=== PATIENT | female | born 1995 | race African-American/Black ===

== ENCOUNTER 2021-09-22 08:07 | Inpatient (IN) ==
[2021-09-22] MEDS ORDERED: OXYTOCIN 30 UNITS/500 ML BAG IV PRN ×2 (08:43→08:54)
--- NOTE | 2021-09-22 08:57 | History & Physical Report ---
Date of Service September 22, 2021 Assessment & Plan (1) Encounter for induction of labor: Plan: 25yo at 39 weeks 4 days presents for IOL complicated by maternal obesity. - AROM later, start pit - Epidural likely, anesthesia consulted - Vitals: mildly tachycardic; otherwise WNL; cont. labor checks, heart monitoring (2) Unfavorable cervix in term : (3) 39 weeks gestation of : (4) Obesity in , antepartum: (5) Supervision of normal intrauterine in primigravida: Admission and Anticipated Discharge Date Admission Date: September 22, 2021 History of Present Illness Chief Complaint: IOL Primary Care Provider: [facility] 25yo at 39 weeks 4 days presents for IOL complicated by maternal obesity. Uncomplicated course thus far. Nulliparous. LMP: 12/19/20. Ledesma bulb inserted yesterday. Removed this morning. Contractions: yes; irregular, started 1 week ago, stronger as of yesterday Vaginal Bleeding: after ledesma insertion yesterday; large clot when ledesma came out this morning; otherwise no vaginal bleeding Leakage of fluid: minimal Movement: yes Did see MFM due to obesity (BMI >40) -higher risk for preeclampsia due to obesity, racial/ethnic background, nulliparity; recommended daily aspirin -increased risk of depression, consider SSRI Symptoms since LMP Symptoms since LMP: morning sickness, fatigue Infection History & Risk Profile Infection History: Hx Chlamydia: No, Hx Genital Herpes: No, Hx Gonorrhea: No, Hx Hepatitis: No, Hx HIV/AIDS: No, Hx Human Papilloma Virus (HPV): No, Hx Syphilis: No, Hx Tuberculosis: No, Rash or viral illness since LMP: No and Prior GBS infected child: No OB Labs: Blood Type O Positive 03/05/21 Antibody Screen NEGATIVE 03/05/21 Hemoglobin 11.9 g/dL (12.0-16.0) L 03/05/21 Hematocrit 36.3 % (37-47) L 03/05/21 Mean Corpuscular Volume 77.6 fL (80-100) L 03/05/21 Platelet Count 340 K/uL (130-400) 03/05/21 Rubella IgG Antibody Immune (Immune) 03/05/21 Rapid Plasma Reagin Nonreactive (Nonreactive) 03/05/21 Hepatitis B Surface Antigen Neg (Neg) 03/05/21 HIV (1&2) Ab and P24 Ag, 4th Gener Neg (Neg) 03/05/21 Glucose 1 Hour 50 gm Load 142 mg/dl (70-130) H 04/09/21 OB Optional Labs: Chlamydia trachomatis RNA NOT DETECTED (NOT DETECTED) 03/05/21 Neisseria gonorrhoeae RNA NOT DETECTED (NOT DETECTED) 03/05/21 Labs Reviewed: -low risk cfdna -neg cf/sma -gbs neg Current medications: , vit D, aspirin 81mg (due to higher risk for preeclampsia) Allergies Allergy/AdvReac Type Severity Reaction Status Date / Time amoxicillin Allergy Severe Anaphylaxis Verified 09/22/21 08:25 Penicillins Allergy Severe Anaphylaxis Verified 09/22/21 08:25 Home Medications Medication Instructions Recorded Confirmed Type prenat.vits,chuy,ybg-tokn-vynqo 1 tab PO DAILY 03/04/21 09/22/21 History cholecalciferol (vitamin D3) 125 125 mcg PO DAILY 08/31/21 09/22/21 History mcg (5,000 unit) tablet (Vitamin D3) aspirin 81 mg capsule 81 mg PO DAILY 09/22/21 09/22/21 History Patient History Medical History (Updated 09/22/21 @ 09:45 by Cory Cervantes DO) History of PCOS Surgical History (Updated 08/31/21 @ 12:53 by Little Magallon RN) H/O Achilles tendon repair LEFT H/O wisdom tooth extraction History of repair of ACL bilateral Family History (Updated 09/22/21 @ 09:43 by Cory Cervantes DO) Mother Hypertension Uncle Muscular dystrophy Social History (Updated 08/31/21 @ 12:56 by Little Magallon RN) Smoking Status: Never smoker Second Hand Exposure: No; Hx Alcohol Use: No Hx Substance Use: No Preferred Language: Mosotho Communication Ability: Effective Visual Impairment: Partially Limited Hearing Ability: Normal Hearings Reporter Required: No Beliefs That Will Affect Care: None marital status: Single marital status details: Jason (35) Current Living Situation: Alone Current Living Situation Comment: lives alone current occupational status: student current occupation: grad school Feels Safe at Home: Yes Gender Identity: Female Assistive Devices: Glasses Review of Systems Constitutional: denies fevers, chills, fatigue HEENT: denies congestion, sore throat CV: denies chest pain, palpitations Resp: denies shortness of breath, cough GI: denies abdominal pain other than contraction pain, nausea, vomiting, constipation, diarrhea : denies pain with urination, change in urinary frequency Musculoskeletal: denies recent injury Skin: denies new rash Neuro: denies new numbness, tingling, weakness Physical Exam Physical Exam: General: Alert, oriented, no acute distress Cardiac: Regular rate and rhythm. No murmurs appreciated. Respiratory: Clear to auscultation b/l with good air flow entry, symmetric chest rise and fall. No wheezes or crackles. No increased work of breathing or acce ssory muscle use. Abdomen: Gravid, soft, nontender. No guarding or CVA tenderness. Skin: No rashes or lesions. Extremities: Warm, dry, well-perfused. No lower extremity edema, erythema or swelling. No calf tenderness. Results & Data ([facility]) Vital Signs (Past 12 Hours) Vital Signs Pulse BP 09/22/21 08:19 93 H 134/78 Supervising Physician Co-Signing Physician Notes Resident Physician Supervision Note: I interviewed and examined the patient. Discussed with Dr. Cervantes and agree with findings and plan as documented in the note. Any exceptions or clarifications are listed here: 25 y/o G1 at 39 4/7 presents for IOL due to BMI >40 at conception per [facility] recs. +FM and had small clot come out with expulsion of ledesma bulb, denies regular ctx or LOF. PNI BMI 40, did not complete 2hr at 28 wks. SVE 3/50/-2, still high. Will start pit, GBS neg. BG this AM wnl, obtained as did not complete 2hr. Documented By: Lien Salgureo MD Resident Activity Tracking Resident Involvement: Resident Care Provided Care Provided: OB Delivery
[2021-09-22 09:19] LABS: Hematocrit (blood only) 33.9 % (37-47); Hemoglobin 10.8 g/dL (12.0-16.0); Mean Corpuscular Hemoglobin 24.7 pg (25-34); Mean Corpuscular Hgb Conc 31.9 g/dL (32-36); Mean Corpuscular Volume 77.4 fL (80-100); Mean Platelet Volume 9.8 fL (7.4-10.4); Platelet Count 298 K/uL (130-400); RDW Coefficient of Variation 15.9 % (11.5-14.5); RDW Standard Deviation 45.3 fL (36.4-46.3); Red Blood Count 4.38 M/uL (4.2-5.4); White Blood Count 11.27 K/uL (4.8-10.8)
[2021-09-22] MEDS: LACTATED RINGER'S 1,000 ML IV PRN ×3 (09:58→21:07)
--- NOTE | 2021-09-22 14:20 | Labor Progress Brief Note ---
Date of Service September 22, 2021 Subjective Feeling some contractions Assessment & Plan (1) Encounter for induction of labor: (2) Obesity in , antepartum: (3) 39 weeks gestation of : Plan: 25 y/o G1 at 39 4/7 wga presenting for IOL due to BMI >40 VSS, last few diastolics at 90 - will order labs if persistent Fetus cat 1 Labor - pit increased to 12, still high to arom currently, may consider w/ next check GBS neg epidural prn Admission and Anticipated Discharge Date Admission Date: September 22, 2021 Physical Exam Genitourinary: Manual OB Exam: + cervical dilation (3-4), + cervical effacement 70% and + station high OB Exam Monitor Tracing: + external FHT monitor used, + external uterine monitor used (q2-5) and + category I (120/mod/+accel/-decel) Results & Data ([facility]) Vital Signs (Past 12 Hours) Vital Signs Temp Pulse Resp BP 09/22/21 14:02 65 139/90 09/22/21 14:00 18 09/22/21 13:33 64 132/90 09/22/21 13:07 68 138/91 09/22/21 12:30 97.7 F 18 09/22/21 11:58 80 135/89 09/22/21 11:05 75 136/89 09/22/21 10:40 18 09/22/21 10:03 72 135/88 09/22/21 08:40 98.2 F 20 09/22/21 08:19 93 H 134/78 Coding Level of Care Code None Diagnoses Encounter for induction of labor Z34.90 Obesity in , antepartum O99.210 39 weeks gestation of Z3A.39
--- NOTE | 2021-09-22 16:33 | Labor Progress Brief Note ---
Date of Service September 22, 2021 Subjective Feeling more pressure w/ contractions, not necessarily pain Assessment & Plan (1) Encounter for induction of labor: (2) Obesity in , antepartum: (3) 39 weeks gestation of : Plan: 25 y/o G1 at 39 4/7 wga presenting for IOL due to BMI >40 VSS, few mild ranges but hard to say if related to contractions, will get labs Fetus cat 1 Labor - pit at 18, now arom and fse/iupc placed for more accurate titration and monitoring so pt can also move as well GBS neg epidural prn Admission and Anticipated Discharge Date Admission Date: September 22, 2021 Physical Exam Genitourinary: Manual OB Exam: + cervical dilation 4 cm, + cervical effacement 70%, + station -2 and + amniotic fluid (AROM, ?light mec) OB Exam Monitor Tracing: + external FHT monitor used, + external uterine monitor used (q2-5) and + category I (120/mod/+accel/-decel) FSE/IUPC placed Results & Data ([facility]) Vital Signs (Past 12 Hours) Vital Signs Temp Pulse Resp BP 09/22/21 16:17 18 09/22/21 16:03 82 140/83 09/22/21 14:58 73 136/89 09/22/21 14:02 65 139/90 09/22/21 14:00 18 09/22/21 13:33 64 132/90 09/22/21 13:07 68 138/91 09/22/21 12:30 97.7 F 18 09/22/21 11:58 80 135/89 09/22/21 11:05 75 136/89 09/22/21 10:40 18 09/22/21 10:03 72 135/88 09/22/21 08:40 98.2 F 20 09/22/21 08:19 93 H 134/78 Coding Level of Care Code None Diagnoses Encounter for induction of labor Z34.90 Obesity in , antepartum O99.210 39 weeks gestation of Z3A.39
[2021-09-22 17:15] LABS: Albumin Level 3.3 gm/dl (3.4-5.0); BUN Creatinine Ratio 7.6 (10-20); Bilirubin,Total 0.4 mg/dl (0.2-1.0); Calcium 8.7 mg/dl (8.5-10.1); Creatinine Clr Calc Pharmacy 207.8 ml/min; Est GFR (African American) 142.3 ml/min; Est GFR (Non-African American) 122.8 ml/min; Globulin 3.2 gm/dl (2.5-4.0); Potassium 3.7 mmol/L (3.5-5.1); Total Protein 6.5 gm/dl (6.0-8.3)
[2021-09-22] MEDS ORDERED: BUPIVACAINE 0.25% 30 ML VIAL ONE (18:44)
[2021-09-22] MEDS ORDERED: fentaNYL citrate 100 MCG/2 ML VIAL ONE (18:44)
[2021-09-22] MEDS ORDERED: SODIUM CHLORIDE 0.9% INJ 10 ML VIAL ONE (18:44)
[2021-09-22] MEDS ORDERED: ePHEDrine sulfate 50 MG/ML AMP ONE (18:44)
[2021-09-22] MEDS ORDERED: fentaNYL 2MCG/ML ROPIVACAINE 1.25MG/ML 100 ML BAG EPI ONE (18:45)
[2021-09-22] MEDS ORDERED: ePHEDrine sulfate 50 MG/ML AMP IV PRN (19:39)
[2021-09-22] MEDS ORDERED: NALOXONE HCL 1 MG in SODIUM CHLORIDE 0.9% 1000ML 1,000 ML IV PRN (19:39)
[2021-09-22] MEDS ORDERED: diphenhydrAMINE 50 MG/ML VIAL IV PRN (19:39)
[2021-09-22] MEDS ORDERED: ONDANSETRON INJ 2 MG/ML 2 ML VIAL IV PRN (19:39)
[2021-09-22] MEDS ORDERED: NALOXONE HCL 0.4 MG/1 ML VIAL/CARP IV PRN (19:39)
[2021-09-22] MEDS ORDERED: PROMETHAZINE HCL 6.25 MG in SODIUM CHLORIDE 0.9% 50 ML IV PRN (19:39)
[2021-09-22] MEDS ORDERED: NALBUPHINE HCL INJ 10 MG/ML AMP IV PRN (19:39)
--- NOTE | 2021-09-22 19:39 | Anesthesiology Consultation ---
Date of Service September 22, 2021 Assessment & Plan Chart Review Chart Review: Acceptable Risk for Surgery and Patient NOT seen in Pre Admission Testing Consults Requested none ASA ASA2 Proposed Anesthesia Anesthesia Type: Labor Epidural Risk / Benefits Reviewed With: PT / POA / Parent / Guardian, Accepts Plan and Informed Consent Obtained History Height/Weight Height: 5 ft 10 in Weight: 149.856 kg Allergies Allergy/AdvReac Type Severity Reaction Status Date / Time amoxicillin Allergy Severe Anaphylaxis Verified 09/22/21 08:25 Penicillins Allergy Severe Anaphylaxis Verified 09/22/21 08:25 Medications Home Medications Medication Instructions Recorded Confirmed Last Taken prenat.vits,chuy,njp-pgbf-kjvwf 1 tab PO DAILY 03/04/21 09/22/21 09/21/21 cholecalciferol (vitamin D3) 125 125 mcg PO DAILY 08/31/21 09/22/21 09/21/21 mcg (5,000 unit) tablet (Vitamin D3) aspirin 81 mg capsule 81 mg PO DAILY 09/22/21 09/22/21 09/21/21 Active Medications Generic Name Dose Route Start Last Admin Trade Name Freq PRN Reason Stop Dose Admin Lactated Ringer's 1,000 mls @ 125 mls/hr 09/22/21 08:43 09/22/21 18:37 Lr IV 09/24/21 08:42 999 mls/hr .Q8H PRN Infusion L&D Protocol Protocol Oxytocin 30 units in 500 mls @ 20 mls/hr 09/22/21 08:54 09/22/21 17:00 Pitocin IV 09/24/21 08:53 1.2 units/hr .Q24H PRN 20 mls/hr Labor Induction/Augmentation Titration Protocol 1.2 UNITS/HR Past Medical History Medical History (Updated 09/22/21 @ 09:45 by Cory Cervantes DO) History of PCOS Exercise / Class Metabolic Activity II 4-5 Yardwork/Stairs/Walk up hill Past Family History Family History (Updated 09/22/21 @ 09:43 by Cory Cervantes DO) Mother Hypertension Uncle Muscular dystrophy Past Surgical History Surgical History (Updated 08/31/21 @ 12:53 by Little Magallon RN) H/O Achilles tendon repair LEFT H/O wisdom tooth extraction History of repair of ACL bilateral Past Anesthesia History No Hx of Anesthesia Complications and No Family Hx of Anesthesia Complications History of PONV No Hx of PONV and No Hx of Motion Sickness Social History Smoking Status: Never smoker Hx Alcohol Use: No Hx Substance Use: No substance use type: does not use Physical Exam Vital Signs Last Vital Signs Temp 36.5 C 09/22/21 12:30 Pulse 82 09/22/21 19:38 Resp 18 09/22/21 17:33 BP 148/82 H 09/22/21 19:38 Pulse Ox 100 09/22/21 19:34 Constitutional + obese ENMT Mouth: no dentition abnormality Thyromental Distance: > or= 3.5 Finger Breadths Mallampati Class: II Neck normal visual inspection Respiratory normal respiratory effort Auscultation: lungs clear to auscultation bilaterally Cardiovascular Rate/Rhythm: regular rate and regular rhythm Psychiatric Orientation: alert Testing Laboratory Results 09/22/21 09:02 09/22/21 16:51 Blood Type Cancelled 09/22/21 09:02 Blood Type O Positive 09/22/21 09:02 Antibody Screen Cancelled 09/22/21 09:02 Antibody Screen NEGATIVE 09/22/21 09:02 09/22/21 09/22/21 09/22/21 17:32 13:36 09:44 POC Glucose 83 69 L* 86
--- NOTE | 2021-09-22 21:59 | Labor Progress Brief Note ---
Date of Service September 22, 2021 Subjective comfortable w/ epidural Assessment & Plan (1) Encounter for induction of labor: (2) Obesity in , antepartum: (3) 39 weeks gestation of : Plan: 25 y/o G1 at 39 4/7 wga presenting for IOL due to BMI >40 VSS Fetus cat 1 Labor - pit at 20, iupc replaced, SVE shows cervix is thinner and lower station than last exam. Will allow to titrate up to 24, may need pit break if no change at that point but will see elev BP - would meet criteria for gHTN, hard to say how much is related to discomfort earlier but CMP was wnl. Will get UPC with straight cath GBS neg epidural Admission and Anticipated Discharge Date Admission Date: September 22, 2021 Physical Exam Genitourinary: Manual OB Exam: + cervical dilation 4 cm, + cervical effacement 80% and + station -2 (but lower station than previous) OB Exam Monitor Tracing: + scalp electrode used, + intra-uterine pressure catheter used (q4, currently not adequate yet) and + category I (125/mod/+accel/-decel) Results & Data ([facility]) Vital Signs (Past 12 Hours) Vital Signs Temp Pulse Resp BP Pulse Ox 09/22/21 21:54 87 100 09/22/21 21:53 77 136/89 09/22/21 21:49 75 99 09/22/21 21:44 80 100 09/22/21 21:39 89 100 09/22/21 21:38 89 141/82 H 09/22/21 21:34 87 100 09/22/21 21:29 79 99 09/22/21 21:24 73 100 09/22/21 21:23 70 134/77 09/22/21 21:19 81 99 09/22/21 21:14 79 99 09/22/21 21:09 74 100 09/22/21 21:08 80 134/79 09/22/21 21:04 84 100 09/22/21 20:59 79 100 09/22/21 20:54 79 100 09/22/21 20:53 75 133/81 09/22/21 20:49 77 100 09/22/21 20:44 84 100 09/22/21 20:39 82 129/81 100 09/22/21 20:34 84 100 09/22/21 20:31 18 02/16/22 20:29 88 100 09/22/21 20:24 90 100 09/22/21 20:23 82 133/69 09/22/21 20:19 83 100 09/22/21 20:14 96 H 100 09/22/21 20:09 82 100 09/22/21 20:08 81 138/80 09/22/21 20:04 89 100 09/22/21 20:01 18 09/22/21 19:59 89 100 09/22/21 19:54 86 100 09/22/21 19:53 88 137/87 09/22/21 19:51 18 09/22/21 19:49 83 100 09/22/21 19:46 18 09/22/21 19:44 83 100 09/22/21 19:41 18 09/22/21 19:40 85 139/77 09/22/21 19:39 89 100 09/22/21 19:38 82 148/82 H 09/22/21 19:36 86 18 149/81 H 09/22/21 19:34 82 152/80 H 100 09/22/21 19:32 82 148/79 H 09/22/21 19:31 18 09/22/21 19:29 78 154/83 H 100 09/22/21 19:28 89 162/96 H 09/22/21 19:24 85 100 09/22/21 19:19 86 100 09/22/21 19:17 88 93 09/22/21 19:14 98 H 96 09/22/21 19:09 87 100 09/22/21 19:04 81 99 09/22/21 19:00 97.5 F L 18 09/22/21 18:40 74 162/92 H 09/22/21 17:33 18 09/22/21 17:10 18 09/22/21 16:59 79 158/89 H 09/22/21 16:22 18 09/22/21 16:17 18 09/22/21 16:03 82 140/83 09/22/21 15:40 18 09/22/21 14:58 73 136/89 09/22/21 14:02 65 139/90 09/22/21 14:00 18 09/22/21 13:33 64 132/90 09/22/21 13:07 68 138/91 02/16/22 12:30 97.7 F 18 09/22/21 11:58 80 135/89 09/22/21 11:05 75 136/89 09/22/21 10:40 18 09/22/21 10:03 72 135/88 Coding Level of Care Code None Diagnoses Encounter for induction of labor Z34.90 Obesity in , antepartum O99.210 39 weeks gestation of Z3A.39
[2021-09-23 00:08] LABS: Creatinine Urine Random 140.5 mg/dl; Protein Creatinine Ratio Urine 0.1 (0-0.2); Total Protein Urine Random 12.6 mg/dl (0-11.9)
[2021-09-23] MEDS: LACTATED RINGER'S 1,000 ML IV PRN ×2 (03:18→11:00)
[2021-09-23] MEDS: fentaNYL 2MCG/ML ROPIVACAINE 1.25MG/ML 100 ML BAG EPI PRN ×3 (04:30→14:02)
--- NOTE | 2021-09-23 07:12 | Labor Progress Brief Note ---
Date of Service September 23, 2021 Subjective comfortable w/ epidural, able to get some rest during pit break and restart Assessment & Plan (1) Encounter for induction of labor: (2) Obesity in , antepartum: (3) 39 weeks gestation of : Plan: 25 y/o G1 at 39 4/7 wga presenting for IOL due to BMI >40 VSS Fetus cat 1 Labor - pit break given, pit back up at 16 now and though not adequate on IUPC there has been good progression so I think is actually starting to go into labor. Continue augmentation elev BP - would meet criteria for gHTN, hard to say how much is related to discomfort earlier but CMP was wnl and UPC normal GBS neg epidural in place Admission and Anticipated Discharge Date Admission Date: September 22, 2021 Physical Exam Genitourinary: Manual OB Exam: + cervical dilation (5-6), + cervical effacement 80% and + station 0 OB Exam Monitor Tracing: + scalp electrode used, + intra-uterine pressure catheter used (q4, currently not adequate) and + category I (130/mod/+accel/-decel) Results & Data ([facility]) Vital Signs (Past 12 Hours) Vital Signs Temp Pulse Resp BP Pulse Ox 09/23/21 07:04 98 H 99 09/23/21 06:59 97 H 99 09/23/21 06:55 96 H 153/99 H 09/23/21 06:54 95 H 99 09/23/21 06:49 103 H 100 09/23/21 06:44 100 H 99 09/23/21 06:39 114 H 100 09/23/21 06:38 105 H 141/83 H 09/23/21 06:34 95 H 99 09/23/21 06:31 18 09/23/21 06:29 84 97 09/23/21 06:24 94 H 98 09/23/21 06:23 102 H 134/82 09/23/21 06:19 87 98 09/23/21 06:14 86 98 09/23/21 06:09 88 142/83 H 98 09/23/21 06:04 91 H 98 09/23/21 05:59 91 H 98 09/23/21 05:54 96 H 98 09/23/21 05:53 93 H 137/84 09/23/21 05:49 86 99 09/23/21 05:44 93 H 100 09/23/21 05:39 94 H 136/83 99 09/23/21 05:34 85 98 09/23/21 05:31 18 09/23/21 05:29 85 98 09/23/21 05:24 87 99 09/23/21 05:23 101 H 129/93 09/23/21 05:19 90 97 09/23/21 05:14 84 97 09/23/21 05:09 86 126/91 98 09/23/21 05:04 84 98 09/23/21 05:01 98.8 F 18 09/23/21 04:59 89 98 09/23/21 04:55 82 137/81 09/23/21 04:54 84 97 09/23/21 04:49 85 98 09/23/21 04:44 83 98 09/23/21 04:39 83 140/87 99 09/23/21 04:34 87 98 09/23/21 04:31 18 09/23/21 04:29 94 H 100 09/23/21 04:24 99 H 143/84 H 100 09/23/21 04:19 82 98 09/23/21 04:14 82 99 09/23/21 04:09 83 138/82 100 09/23/21 04:04 86 100 09/23/21 03:59 86 98 09/23/21 03:55 81 137/79 09/23/21 03:54 81 98 09/23/21 03:49 86 99 09/23/21 03:44 81 98 09/23/21 03:39 88 137/81 98 09/23/21 03:34 85 98 09/23/21 03:31 18 09/23/21 03:29 83 99 09/23/21 03:24 101 H 135/74 99 09/23/21 03:19 85 100 09/23/21 03:14 98.8 F 82 18 100 09/23/21 03:09 90 136/88 100 09/23/21 03:04 84 99 09/23/21 02:59 80 99 09/23/21 02:54 82 99 09/23/21 02:53 81 145/84 H 09/23/21 02:49 84 99 09/23/21 02:44 80 99 09/23/21 02:39 85 100 09/23/21 02:38 80 140/83 09/23/21 02:34 82 100 09/23/21 02:29 82 100 09/23/21 02:24 77 100 09/23/21 02:23 83 140/83 09/23/21 02:19 87 100 09/23/21 02:15 18 09/23/21 02:14 86 100 09/23/21 02:09 80 100 09/23/21 02:08 80 139/81 09/23/21 02:04 86 100 09/23/21 01:59 84 100 09/23/21 01:55 92 H 137/87 09/23/21 01:54 88 100 09/23/21 01:49 82 100 09/23/21 01:44 82 100 09/23/21 01:39 77 140/88 100 09/23/21 01:34 88 100 09/23/21 01:29 74 100 09/23/21 01:24 81 98 09/23/21 01:23 98.2 F 78 18 140/90 09/23/21 01:19 80 100 09/23/21 01:14 96 H 99 09/23/21 01:09 90 99 09/23/21 01:08 80 132/81 09/23/21 01:04 76 100 09/23/21 00:59 79 18 100 09/23/21 00:54 81 100 09/23/21 00:53 77 125/76 09/23/21 00:49 81 99 09/23/21 00:44 81 99 09/23/21 00:39 81 99 09/23/21 00:38 75 134/84 09/23/21 00:34 75 100 09/23/21 00:29 77 100 09/23/21 00:24 96 H 152/91 H 100 09/23/21 00:19 86 98 09/23/21 00:14 86 99 09/23/21 00:09 84 100 09/23/21 00:08 83 137/85 09/23/21 00:04 82 99 09/22/21 23:59 85 98 09/22/21 23:54 85 99 09/22/21 23:53 82 135/85 09/22/21 23:49 85 98 09/22/21 23:44 86 99 09/22/21 23:39 81 99 09/22/21 23:38 78 130/83 09/22/21 23:34 87 100 09/22/21 23:31 18 09/22/21 23:29 82 100 09/22/21 23:24 82 140/86 100 09/22/21 23:19 98.6 F 75 18 100 09/22/21 23:14 85 100 09/22/21 23:09 86 136/86 100 09/22/21 23:04 83 100 09/22/21 22:59 84 100 09/22/21 22:54 86 132/85 100 09/22/21 22:49 84 100 09/22/21 22:44 86 100 09/22/21 22:39 86 100 09/22/21 22:38 85 129/80 09/22/21 22:34 91 H 100 09/22/21 22:29 88 100 09/22/21 22:24 85 100 09/22/21 22:23 82 125/81 09/22/21 22:19 86 100 09/22/21 22:14 79 100 09/22/21 22:09 83 100 09/22/21 22:08 75 129/76 09/22/21 22:04 76 100 09/22/21 22:01 18 09/22/21 21:59 84 100 09/22/21 21:54 87 100 09/22/21 21:53 77 136/89 09/22/21 21:49 75 99 09/22/21 21:44 80 100 09/22/21 21:39 89 100 09/22/21 21:38 89 141/82 H 09/22/21 21:34 87 100 09/22/21 21:29 79 99 09/22/21 21:24 73 100 09/22/21 21:23 70 134/77 09/22/21 21:19 81 99 09/22/21 21:14 79 99 09/22/21 21:09 74 100 09/22/21 21:08 80 134/79 09/22/21 21:07 98.4 F 09/22/21 21:04 84 100 09/22/21 20:59 79 18 100 09/22/21 20:54 79 100 09/22/21 20:53 75 133/81 09/22/21 20:49 77 100 09/22/21 20:44 84 100 09/22/21 20:39 82 129/81 100 09/22/21 20:34 84 100 09/22/21 20:31 18 09/22/21 20:29 88 100 09/22/21 20:24 90 100 09/22/21 20:23 82 133/69 09/22/21 20:19 83 100 09/22/21 20:14 96 H 100 09/22/21 20:09 82 100 09/22/21 20:08 81 138/80 09/22/21 20:04 89 100 09/22/21 20:01 18 09/22/21 19:59 89 100 09/22/21 19:54 86 100 09/22/21 19:53 88 137/87 09/22/21 19:51 18 09/22/21 19:49 83 100 09/22/21 19:46 18 09/22/21 19:44 83 100 09/22/21 19:41 18 09/22/21 19:40 85 139/77 09/22/21 19:39 89 100 09/22/21 19:38 82 148/82 H 09/22/21 19:36 86 18 149/81 H 09/22/21 19:34 82 152/80 H 100 09/22/21 19:32 82 148/79 H 09/22/21 19:31 18 09/22/21 19:29 78 154/83 H 100 09/22/21 19:28 89 162/96 H 09/22/21 19:24 85 100 09/22/21 19:19 86 100 09/22/21 19:17 88 93 09/22/21 19:14 98 H 96 Coding Level of Care Code None Diagnoses Encounter for induction of labor Z34.90 Obesity in , antepartum O99.210 39 weeks gestation of Z3A.39
[2021-09-23] MEDS ORDERED: Nursing to Pharmacy Communication SCH (08:00)
[2021-09-23] MEDS ORDERED: BENZOCAINE 20% AER SPR 82.5 GM CAN EXT PRN (16:49)
[2021-09-23] MEDS ORDERED: HYDROCORTISONE ACETATE 25 MG SUPP PR PRN (16:49)
[2021-09-23] MEDS ORDERED: oxyCODONE/ACETAMINOPHEN 5mg/325mg TAB PO PRN (16:49)
[2021-09-23] MEDS ORDERED: bisacodyL 10 MG SUPP PR PRN (16:49)
[2021-09-23] MEDS ORDERED: DIPHTHERIA/TETANUS/PERTUSSIS 0.5 ML SYR/VIAL IM ONE (16:49)
[2021-09-23] MEDS ORDERED: OXYTOCIN 30 UNITS/500 ML BAG IV PRN (16:49)
[2021-09-23] MEDS ORDERED: ACETAMINOPHEN 325 MG TAB PO PRN (16:49)
--- NOTE | 2021-09-23 16:54 | Delivery Summary ---
Vaginal Delivery Summary Date of Service September 23, 2021 Vaginal Delivery Summary and 1st Degree LAC Patient is a 25-year-old 1 P0 who presents for induction of labor because of obesity. A cervical balloon was placed the night prior to Pitocin augmentation of her labor. Upon readmission to labor and delivery Pitocin induction of labor was begun. She received effective epidural analgesia. Membranes were ruptured for clear fluid. She progressed to full dilation and pushed effectively over intact perineum for delivery of a viable male . After the head was delivered the rest the infant delivered easily was placed on the mother's abdomen for further attention and drying. The infant was vigorous and moving all 4 limbs. The cord was clamped and cut after approximately 40 seconds. After cord blood was obtained, the placenta was expressed intact with a three-vessel cord. The first-degree perineal laceration was repaired with 3-0 chromic in usual fashion. Estimated blood loss was 200 cc. bleeding was controlled with fundal massage and dilute Pitocin. Mother and were doing well after delivery[place] [facility] [place] Delivery Type Details: and 1st Degree LAC
--- NOTE | 2021-09-23 17:07 | Anesthesia Procedure Note ---
Date of Service September 23, 2021 Anesthesia Post Epidural Note Vital Signs Vital Signs: Temp Pulse Resp BP Pulse Ox 36.6 C 99 H 18 134/70 98 09/23/21 07:00 09/23/21 16:53 09/23/21 13:00 09/23/21 16:53 09/23/21 16:24 Pain Intensity Abdomen: Pain Intensity: 5 Notes Mental Status: alert / awake / arousable and participated in evaluation Patient Amnestic to Procedure: No Nausea / Vomiting: adequately controlled Pain: adequately controlled Airway Patency, RR, SpO2: stable & adequate BP & HR: stable & adequate Hydration State: stable & adequate Neuraxial Anesthesia: was administered and sensory block is resolving Anesthetic Complications: no major complications apparent and Pt Satisfied with anesthetic care Epidural: Removed without complications and With tip intact
[2021-09-23] MEDS: DOCUSATE SODIUM 100 MG CAP PO SCH (23:40)
[2021-09-23] MEDS: IBUPROFEN 600 MG TAB PO PRN (23:46)
[2021-09-24] MEDS: IBUPROFEN 600 MG TAB PO PRN ×3 (03:55→21:08)
--- NOTE | 2021-09-24 07:09 | Hospitalist Progress Note ---
Date of Service September 24, 2021 Assessment & Plan (1) Encounter for care and examination after delivery: Plan: 25yo PPD 1 s/p at 39 weeks 4 days complicated by obesity (BMI>40). -Continue routine care -GBS neg -Vitals reviewed- afebrile -mildly HTN prior to delivery; a few elevated readings s/p delivery likely 2/2 stress of post ; cont. to monitor, hold off on BP meds for now -Encourage ambulation, regular diet -Pain control with ibuprofen, acetaminophen PRN -Encourage -Hgb 10.8, stable -f/u in 6 weeks with OB after discharge (2) Obesity in , antepartum: Admission and Anticipated Discharge Date Admission Date: September 22, 2021 Supervising Physician Co-Signing Physician Notes Resident Physician Supervision Note: I was present with Dr. Cory Cervantes during the history and exam. I discussed the case with the resident and agree with the findings and plan as documented in the note. Any exceptions or clarifications are listed here: [None] Documented By: Esther Saez MD, FACOG Subjective Ambulation: yes Voiding: yes Passing Gas: yes BM: not yet Diet Tolerance: regular w/o N/V Lochia: small Feeding Type: breast and bottle; baby not latching well Current Pain Level(1-10): 6 Review of Systems Review of Systems: Denies fevers/chills. Denies dyspnea, cough. Denies chest pain. Denies breast pain or discharge. Denies dysuria. +mild headache post delivery, resolved Physical Exam Physical Exam: General: Alert, oriented, no acute distress Cardiac: Regular rate and rhythm. No murmurs appreciated. Respiratory: Clear to auscultation b/l with good air flow entry, symmetric chest rise and fall. No wheezes or crackles. No increased work of breathing or accessory muscle use Abdomen: Soft, appropriately mild diffuse tenderness, nondistended. Fundus firm and palpable at umbilicus. No guarding or rebound. Skin: No rashes or lesions Extremities: Warm, dry, well-perfused. No lower extremity edema, erythema or swelling. No calf tenderness. Results & Data Results & Data ([facility]) Vital Signs (Past 12 Hours) Vital Signs Temp Pulse Resp BP Pulse Ox 09/24/21 03:05 36.5 C 67 16 136/92 100 09/24/21 00:35 153/99 H 09/24/21 00:25 146/99 H 09/23/21 23:25 36.8 C 69 16 98 Resident Activity Tracking Resident Involvement: Resident Care Provided Care Provided: OB Delivery
[2021-09-24 07:17] LABS: Hematocrit (blood only) 29.7 % (37-47); Hemoglobin 9.7 g/dL (12.0-16.0); Mean Corpuscular Hemoglobin 25.2 pg (25-34); Mean Corpuscular Hgb Conc 32.7 g/dL (32-36); Mean Corpuscular Volume 77.1 fL (80-100); Mean Platelet Volume 10.3 fL (7.4-10.4); Platelet Count 266 K/uL (130-400); RDW Coefficient of Variation 16.1 % (11.5-14.5); RDW Standard Deviation 45.2 fL (36.4-46.3); Red Blood Count 3.85 M/uL (4.2-5.4); White Blood Count 18.73 K/uL (4.8-10.8)
[2021-09-24] MEDS: DOCUSATE SODIUM 100 MG CAP PO SCH ×2 (08:40→21:08)
[2021-09-24] MEDS: PRENATAL VITAMIN 1 TAB PO SCH (08:41)
[2021-09-24] MEDS ORDERED: bisacodyL 5 MG TABEC PO SCH (20:00)
[2021-09-25 06:42] LABS: Hematocrit (blood only) 29.4 % (37-47); Hemoglobin 10.1 g/dL (12.0-16.0)
[2021-09-25] MEDS: IBUPROFEN 600 MG TAB PO PRN (07:50)
--- NOTE | 2021-09-25 08:53 | Obstetrical Progress Note ---
Date of Service September 25, 2021 Assessment & Plan (1) Encounter for care and examination after delivery: Plan: 25yo PPD 2 s/p at 39 weeks 4 days complicated by obesity (BMI>40). -Continue routine care -GBS neg -Vitals reviewed- afebrile -mildly HTN prior to delivery; a few elevated readings s/p delivery likely 2/2 stress of post ; BP stable over last 24 hours; will recheck in clinic 1 week -Encourage ambulation, regular diet -Pain control with ibuprofen, acetaminophen PRN -Encourage -Hgb 10.1, stable -f/u in 1 week with OB for BP recheck (2) Obesity in , antepartum: Admission and Anticipated Discharge Date Admission Date: September 22, 2021 Supervising Physician Co-Signing Physician Notes Patient seen and evaluated and agree with the above findings and plan. BPs under good control past 24 hours. will plan for 1 week BP check. Stable for discharge Subjective Ambulation: yes Voiding: yes Passing Gas: yes BM: yes Diet Tolerance: regular w/o N/V Lochia: small Feeding Type: breast and bottle; baby not latching well Current Pain Level(1-10): 2 Review of Systems Review of Systems: Denies fevers/chills. Denies dyspnea, cough. Denies chest pain. Denies breast pain or discharge. Denies dysuria. Denies headache Physical Exam Physical Exam: General: Alert, oriented, no acute distress Cardiac: Regular rate and rhythm. No murmurs appreciated. Respiratory: Clear to auscultation b/l with good air flow entry, symmetric chest rise and fall. No wheezes or crackles. No increased work of breathing or accessory muscle use Abdomen: Soft, appropriately mild diffuse tenderness, nondistended. Fundus firm and palpable 1cm below umbilicus. No guarding or rebound. Skin: No rashes or lesions Extremities: Warm, dry, well-perfused. No lower extremity edema, erythema or swelling. No calf tenderness. Results & Data ([facility]) Vital Signs (Past 12 Hours) Vital Signs Temp Pulse Resp BP Pulse Ox 09/25/21 07:35 36.6 C 65 18 120/76 09/24/21 23:00 37.0 C 85 20 129/85 97 Resident Activity Tracking Resident Involvement: Resident Care Provided Care Provided: OB Delivery
[2021-09-25] MEDS: PRENATAL VITAMIN 1 TAB PO SCH (09:14)
[2021-09-25] MEDS: DOCUSATE SODIUM 100 MG CAP PO SCH (09:15)
== END 2021-09-25 13:25 | disposition home or self-care (01) | DRG 807 ==
LOC: 4S1 08:07 → 4S2 09-23 19:05